=== PATIENT | male | born 1980 | race Caucasian/White ===

== ENCOUNTER 2017-08-24 17:49 | Emergency (ER) | payer OTHER ==
[~2017-08-24] VITALS: Ht 175.3 cm; Wt 93.0 kg
[2017-08-24 18:14] VITALS: BP 136/84
[2017-08-24 18:39] LABS: ABSOLUTE BASOPHIL COUNT 0 /CUMM (0.0-0.2); ABSOLUTE EOSINOPHIL COUNT 0 /CUMM (0.0-0.7); ABSOLUTE GRANULOCYTE CT 10.6 /CUMM (1.4-6.5); ABSOLUTE LYMPH COUNT 1.4 /CUMM (1.2-3.4); BASOPHIL % 0.2 % (0.0-2.0); EOSINOPHIL % 0.2 % (0-5); GRANULOCYTE % 80.7 % (42.2-75.2); HEMATOCRIT 43.3 % (42-52); MEAN CORPUSCULAR HGB 27.9 PG (27.0-31.0); MEAN CORPUSCULAR HGB CONC 33.1 G/DL (33.0-37.0); MEAN CORPUSCULAR VOLUME 84.3 FL (80.0-94.0); MEAN PLATELET VOLUME 8.5 FL (7.4-10.4); PLATELET COUNT 175 /CUMM (130-400); RBC DISTRIBUTION WIDTH 12.9 % (11.5-14.5); RED BLOOD CELL CT 5.13 /CUMM (4.70-6.10); WHITE BLOOD CELL COUNT 13.1 /CUMM (4.8-10.8)
--- NOTE | 2017-08-24 20:20 | ED INFLUENZA/URI COMPLAINT ---
History of Present Illness General Chief Complaint: Fever Stated Complaint: FLU S/S Source: patient, family Exam Limitations: no limitations Vital Signs & Intake/Output Vital Signs & Intake/Output Vital Signs Date Time Temp Pulse Resp B/P B/P Pulse O2 O2 Flow FiO2 Mean Ox Delivery Rate 08/24 2119 96.6 08/24 1814 97.9 91 18 136/84 96 Room Air Room Air Allergies Coded Allergies: No Known Allergies (08/24/17) Reconcile Medications Hyoscyamine (Levsin) 0.125 MG TABLET 1 TAB PO Q4 PRN abdominal spasms Ondansetron (Zofran Odt) 4 MG TAB.RAPDIS 1 TAB SL TID PRN nausea Triage Note: TRIAGE: 37 Y/O MALE PRESNETS C/O FEVER AT HOME (104), CHEST PAIN, ABDOMINAL PAIN, ALL OVER BODY ACHES. TEMP IN TRIAGE 97.9. FLU SWAB SENT FROM TRIAGE Triage Nurses Notes Reviewed? yes Onset: Gradual Duration: day(s): (5) Timing: remote history Severity: moderate Prior Episodes/Possible Cause: occassional episodes Modifying Factors: Improves With: other (motrin/tylenol). HPI: Patient is a 37-year-old male presenting to the emergency department with chief complaint of upper respiratory congestion, sore throat, body aches and intermittent fevers and chills that have been going on for the past 5 days. He saw his ent doctor and was started on amoxicillin for pharyngitis. He then developed high fevers the following day. Was seen at another hospital and diagnosed clinically with the flu.. He's been on Tamiflu since yesterday. Patient reports that he started taking Tamiflu. Reports vomiting 2 episodes. No diarrhea. Denies blood in the vomit. Patient reports diffuse body aches including his chest wall. He does have residual abdominal "burning" but does not have the chest pain. MAXIMUM TEMPERATURE of 104. Relieved with Tylenol and Motrin. (Erika Galdamez) Past History Travel History Traveled to [place] past 21 day No Medical History Any Pertinent Medical History? see below for history Neurological: NONE EENT: NONE Cardiovascular: hypertension Surgical History Surgical History: non-contributory Psychosocial History What is your primary language Citizen [place] Tobacco Use: Never used ETOH Use: denies use Illicit Drug Use: denies illicit drug use Family History Hx Contributory? No (Erika Galdamez) Review of Systems Review of Systems Constitutional: Reports: see HPI, chills, fever, malaise. Comments Review of systems: See HPI, All other systems negative. Constitutional, no weight loss HEENT: No visual changes, no congestion Cardiovascular: No palpitation , orthopnea or ankle swelling Skin, no jaundice no rashes Respiratory: No dyspnea cough sputum or hemoptysis GI: no diarrhea : No dysuria No hematuria Muscle skeletal: no back pain, no neck pain, Neurologic: No numbness no confusion Psych: No stress anxiety or depression,. Heme/endocrine: No bruising no bleeding no polyuria or polydipsia Immunology: No splenectomy or history of AIDS (Erika Galdamez) Physical Exam Physical Exam General Appearance: well developed/nourished, no apparent distress, alert, awake , comfortable Ears, Nose, Throat: nasal congestion, nasal drainage, Tympanic bulging, pharyngeal erythema Comments: Well-developed well-nourished person in no acute distress HEENT: Pupils equally round and reactive to light and accommodation. Nose is atraumatic. External auditory canal clear bilaterally, tympanic membranes are erythematous and bulging bilaterally. Pharynx is moderately erythematous, slight tonsillar enlargement bilaterally with white exudate. No swelling or edema. Neck: Supple, no lymphadenopathy, normal range of motion without pain or tenderness Back: Nontender Cardiovascular: Regular rate and rhythms no murmurs rubs or gallops, normal JVP Respiratory: Chest nontender. No respiratory distress.breath sounds clear to auscultation bilaterally Abdomen: Soft, nontender nondistended, no appreciable organomegaly. Normal bowel sounds. No ascites, no rebound or guarding. Neuro: Alert oriented x3 Skin: No appreciable rash on exposed skin, skin is warm and dry. Psych: Mood and affect is normal, memory and judgment is normal. Core Measures Sepsis Present: No Sepsis Focused Exam Completed? No (Erika Galdamez) Progress Differential Diagnosis: influenza, pneumonia, pharyngitis, sinusitis Plan of Care: Orders Procedure Date/time Status THROAT CULTURE W/QUICK STREP 08/24 2019 Active URINALYSIS 08/24 2019 Complete TROPONIN LEVEL 08/24 1818 Complete MAGNESIUM 08/24 1818 Complete LIPASE 08/24 1818 Complete COMPREHENSIVE METABOLIC PANEL 08/24 1818 Complete CHOLESTEROL 08/24 1818 Complete CBC WITHOUT DIFFERENTIAL 08/24 1818 Complete AMYLASE 08/24 1818 Complete EKG 08/24 1815 Active RAPID VIRAL INFLUENZA A 08/24 1804 Complete Laboratory Tests 08/24/172028: Urinalysis LIGHT H, Urine Color YEL, Urine Clarity CLEAR, Urine pH 6.0, Ur Specific [place] 1.020, Urine Protein TRACE H, Urine Ketones TRACE H, Urine Nitrite NEG, Urine Bilirubin NEG, Urine Urobilinogen 0.2, Ur Leukocyte Esterase NEG, Ur Microscopic SEDIMENT EXAMINED, Urine RBC RARE, Urine WBC RARE, Ur Epithelial Cells RARE, Urine Bacteria RARE H, Urine Mucus RARE, Urine Hemoglobin NEG, Urine Glucose NEG 08/24/171824: Anion Gap 12, Estimated GFR > 60, BUN/Creatinine Ratio 9.1, Glucose 109 H, Calcium 9.8, Magnesium 1.9, Total Bilirubin 0.7, AST 21, ALT 37, Alkaline Phosphatase 62, Troponin I < 0.01, Total Protein 7.1, Albumin 4.2, Globulin 2.9, Albumin/Globulin Ratio 1.4, Cholesterol 185, Amylase 42, Lipase 47, CBC w Diff NO MAN DIFF REQ, RBC 5.13, MCV 84.3, MCH 27.9, MCHC 33.1, RDW 12.9, MPV 8.5, Gran % 80.7 H, Lymphocytes % 10.9 L, Monocytes % 8.0, Eosinophils % 0.2, Basophils % 0.2, Absolute Granulocytes 10.6 H, Absolute Lymphocytes 1.4, Absolute Monocytes 1.0 H, Absolute Eosinophils 0, Absolute Basophils 0 Microbiology 08/24 1817 NASOPHARYN: Influenza Virus A & B Rapid Smear - COMP Initial ED EKG: NSR (sinus rhythm at 74 bpm) (Erika Galdamez) Departure Departure Time of Disposition: 2111 Disposition: HOME OR SELF CARE Condition: Stable Clinical Impression Primary Impression: Pharyngitis Qualifiers: Pharyngitis/tonsillitis etiology: unspecified etiology Qualified Code: J02.9 - Acute pharyngitis, unspecified Secondary Impressions: Ear infection Nausea and vomiting Qualifiers: Vomiting type: unspecified Vomiting Intractability: non-intractable Qualified Code: R11.2 - Nausea with vomiting, unspecified Referrals: Guille Douglas MD (PCP/Family) Additional Instructions: Follow-up with your primary care physician in the next 2-4 days. Increase fluids. Continue taking amoxicillinprescribed. Take Zofran as prescribed up with any nausea. Take Levsin help with abdominal discomfort. Return for worsening symptoms or concerns. Use [id number] Motrin or Tylenol as for any aches pains or fevers. Departure Forms: Customer Survey General Discharge Information Prescriptions: Current Visit Scripts Hyoscyamine (Levsin) 1 TAB PO Q4 PRN abdominal spasms #20 TAB Ondansetron (Zofran Odt) 1 TAB SL TID PRN nausea #10 TAB (Erika Galdamez) PA/[employer] Co-Sign Statement Statement: ED Attending supervision documentation- [] I saw and evaluated the patient. I have also reviewed all the pertinent lab results and diagnostic results. I agree with the findings and the plan of care as documented in the PA's/[employer] TR[employer]ER's documentation. [X] I have reviewed the ED Record and agree with the PA's/T[employer] TR[employer]ER's documentation. [] Additions or exceptions (if any) to the PAs/T[employer] TR[employer] LO[employer]ER's note and plan are summarized below: [] (Colette CORREIA,Liam Galaviz)
[2017-08-24] MEDS ORDERED: ZOFRAN ODT4 M1 SL (21:15)
[2017-08-24] MEDS ORDERED: LEVSIN0.125 M1 PO (21:15)
== END 2017-08-24 21:19 ==
LOC: ERH 17:49
PROVIDERS: Emergency Medicine
DX: J02.9 Acute pharyngitis, unspecified (principal); R11.2 Nausea with vomiting, unspecified; H66.90 Otitis media, unspecified, unspecified ear; R07.89 Other chest pain
CPT/HCPCS: 81001; 87804; 87804-59; 93005; 93010; J3101